=== PATIENT | male | born 2000 | race Caucasian/White ===

== ENCOUNTER 2019-03-11 22:42 | Emergency (ER) | payer OTHER ==
[~2019-03-11] VITALS: Ht 172.7 cm; Wt 78.2 kg
[2019-03-11 22:42] VITALS: BP 164/77
[2019-03-11] MEDS ORDERED: DERMABOND TOPICAL SKIN ADHESIVE TOP ONE (23:30)
== END 2019-03-12 00:19 | disposition home or self-care (01) ==
LOC: M ED 22:42
DX: S01.81XA Laceration without foreign body of other part of head, initial encounter (principal); W22.8XXA Striking against or struck by other objects, initial encounter; Y92.89 Other specified places as the place of occurrence of the external cause; Y99.0 Civilian activity done for income or pay

== ENCOUNTER 2019-07-28 19:44 | Emergency (ER) | payer OTHER ==
[~2019-07-28] VITALS: Ht 170.2 cm; Wt 77.3 kg
[2019-07-28 21:46] VITALS: BP 149/79
== END 2019-07-28 21:50 | disposition home or self-care (01) ==
LOC: M ED 19:44
DX: R20.2 Paresthesia of skin (principal); X31.XXXA Exposure to excessive natural cold, initial encounter; Y92.9 Unspecified place or not applicable; Y93.89 Activity, other specified; Y99.0 Civilian activity done for income or pay

== ENCOUNTER 2022-11-06 19:40 | Emergency (ER) | payer OTHER ==
[~2022-11-06] VITALS: Ht 172.7 cm; Wt 102.1 kg
[2022-11-06 19:41] VITALS: BP 148/71; TEMP 102.1; O2SAT 96
[2022-11-06] MEDS ORDERED: ACET32TAB PO (20:06)
[2022-11-06 22:03] LABS: RSV AMPLIFICATION NEGATIVE (NEGATIVE)
== END 2022-11-06 23:43 | disposition left against medical advice (07) ==
LOC: M ED 19:40
DX: R11.10 Vomiting, unspecified (principal); Z53.21 Procedure and treatment not carried out due to patient leaving prior to being seen by health care provider

== ENCOUNTER 2024-02-09 09:36 | Emergency (ER) | payer OTHER ==
[~2024-02-09] VITALS: Ht 172.7 cm; Wt 100.5 kg
[~2024-02-09 09:36] MED LIST: ACET32TAB PO
[2024-02-09] MEDS ORDERED: BENZ200C70 PO (10:30)
[2024-02-09 10:46] VITALS: BP 128/61; TEMP 97.7; O2SAT 99
== END 2024-02-09 10:47 | disposition home or self-care (01) ==
LOC: M ED 09:36
DX: U07.1 COVID-19 (principal)